=== PATIENT | male | born 1970 | race Caucasian/White ===

== ENCOUNTER 2017-05-22 02:36 | Emergency (ER) | payer SELFPAY ==
[~2017-05-22] VITALS: Ht 172.7 cm; Wt 65.0 kg
[2017-05-22 02:38] VITALS: BP 134/80; PULSE 67; RESP 16; TEMP 98.4; O2SAT 99
[2017-05-22] MEDS ORDERED: BACITRACIN/POLYMYXIN B 15 GM TUBE TOPICAL ONE (03:00)
--- NOTE | 2017-05-22 03:00 | PD ---
HPI Chief Complaint: Psychiatric Symptoms Time Seen by Provider: 02:45 Travel History International Travel<30 days: No Contact w/Intl Traveler<30days: No Traveled to known affect area: No History of Present Illness HPI This is a 46-year-old male who presents voluntarily requesting psychiatric evaluation. He reports over the past several months he has been binging on cocaine and alcohol. 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 He reports that most recently he was living in a hotel however last week the hotel ceiling collapsed on him. He was seen at [facility] for evaluation of his injuries. He had imaging studies performed at that time. He reports that he is now essentially homeless and over the past month he has been feeling increasingly depressed and having suicidal thoughts. Specifically he has had thoughts of shooting himself in the head. He called a friend who brought him here. He is complaining of some scabbed abrasions to the scalp and left knee from the ceiling injury. They are painful. He is also complaining of some nonspecific soft tissue swelling to the right forearm for the past 3 weeks. He reports that he had a fracture to the right forearm in 2013 and he doesn't know if this is related. He denies any IV drug abuse. He has no other complaints at this time. [facility] Social History Alcohol Use: Yes Tobacco Use: Yes Substance Use: Yes Allergies-Medications (Allergen,Severity, Reaction): Coded Allergies: No Known Allergies (Unverified , 05/22/17) Reported Meds & Prescriptions Reported Meds & Active Scripts Active No Active Prescriptions or Reported Medications Review of Systems Except as stated in HPI: all other systems reviewed are Neg Physical Exam Narrative GENERAL: Well-developed well-nourished male who appears depressed, anxious, tearful SKIN: Warm and dry. Well healing scabbed wounds noted to the scalp and left knee. Nonspecific soft tissue swelling to the medial right forearm, approximately 1.5 cm in diameter, subcutaneous. HEAD: Atraumatic. Normocephalic. EYES: Pupils equal and round. No scleral icterus. No injection or drainage. ENT: No nasal bleeding or discharge. Mucous membranes pink and moist. NECK: Trachea midline. No JVD. CARDIOVASCULAR: Regular rate and rhythm. No murmur appreciated. RESPIRATORY: No accessory muscle use. Clear to auscultation. Breath sounds equal bilaterally. GASTROINTESTINAL: Abdomen soft, non-tender, nondistended. Hepatic and splenic margins not palpable. MUSCULOSKELETAL: No obvious deformities. Skin as noted above. NEUROLOGICAL: Awake and alert. No obvious cranial nerve deficits. Motor grossly within normal limits. Normal speech. PSYCHIATRIC: Depressed, anxious, tearful Data Data Last Documented VS Vital Signs Date Time Temp Pulse Resp B/P Pulse Ox O2 Delivery O2 Flow Rate FiO2 05/22/17 02:38 98.4 67 16 134/80 99 Room Air Orders Complete Blood Count With Diff (05/22/17 02:56) Comprehensive Metabolic Panel (05/22/17 02:56) Psych Screen (05/22/17 02:56) Drug Screen, Random Urine (05/22/17 02:56) Alcohol (Ethanol) (05/22/17 02:56) Forearm (2vws) (05/22/17 ) Us Arm Soft Tissue (05/22/17 ) Bacitracin/Polymyxin Oint (Polysporin Oi (05/22/17 03:00) Labs Laboratory Tests Test 05/22/17 03:55 White Blood Count 8.6 TH/MM3 Red Blood Count 4.31 MIL/MM3 Hemoglobin 13.5 GM/DL Hematocrit 40.3 % Mean Corpuscular Volume 93.4 FL Mean Corpuscular Hemoglobin 31.3 PG Mean Corpuscular Hemoglobin 33.5 % Concent Red Cell Distribution Width 14.2 % Platelet Count 310 TH/MM3 Mean Platelet Volume 7.9 FL Neutrophils (%) (Auto) 61.4 % Lymphocytes (%) (Auto) 22.6 % Monocytes (%) (Auto) 12.5 % Eosinophils (%) (Auto) 2.3 % Basophils (%) (Auto) 1.2 % Neutrophils # (Auto) 5.3 TH/MM3 Lymphocytes # (Auto) 1.9 TH/MM3 Monocytes # (Auto) 1.1 TH/MM3 Eosinophils # (Auto) 0.2 TH/MM3 Basophils # (Auto) 0.1 TH/MM3 CBC Comment DIFF FINAL Differential Comment Sodium Level 138 MEQ/L Potassium Level 3.6 MEQ/L Chloride Level 106 MEQ/L Carbon Dioxide Level 23.3 MEQ/L Anion Gap 9 MEQ/L Blood Urea Nitrogen 13 MG/DL Creatinine 1.14 MG/DL Estimat Glomerular Filtration 69 ML/MIN Rate Random Glucose 89 MG/DL Calcium Level 7.9 MG/DL Aspartate Amino Transf 22 U/L (AST/SGOT) Albumin 3.2 GM/DL MDM Medical Decision Making Medical Screen Exam Complete: Yes Emergency Medical Condition: Yes Medical Record Reviewed: Yes Interpretation(s) CONCLUSION: 1. 2.8 x 2.3 x 0.8 cm well-circumscribed mass lesion in the subcutaneous tissues of the forearm with central calcification. Findings may represent an area of previous trauma with surrounding granulation tissue. 2. No abscess. Differential Diagnosis Substance induced mood disorder, major depressive disorder, alcoholism, acute psychosis, adjustment reaction Narrative Course 46-year-old male presents voluntarily requesting psychiatric evaluation for suicidal ideation. He reports that he has been binging on cocaine and alcohol for several months. For medical complaints he is complaining of some nonspecific soft tissue swelling to the medial right forearm for 3 weeks as well as pain associated with healing wounds on the left knee and scalp from a recent injury which he was evaluated for an outside hospital. Examination reveals healing wounds to the left knee and scalp with no evidence of infection. He has a 1.5 cm rubbery subcutaneous density to the medial right forearm. Soft tissue ultrasound an x-ray of the forearm will be performed. Polysporin will be administered to the patient's healing wounds. Mental health screening discussed with the patient. Psychiatric screen ordered. Ultrasound and x-ray imaging reveals no acute abnormality, no abscess. Diagnosis Primary Impression: Polysubstance abuse Additional Impression: Suicidal ideation Scripts No Active Prescriptions or Reported Meds Minh Gomez May 22, 2017 03:00
--- NOTE | 2017-05-22 03:18 | RADRPT ---
EXAM DATE/TIME: 05/22/2017 02:54 [facility] COMPARISON: No previous studies available for comparison. INDICATIONS : Right arm pain- no known injury MEDICAL HISTORY : None. SURGICAL HISTORY : None. ENCOUNTER: Initial ACUITY: 1 day PAIN SCORE: 5/10 LOCATION: Right Forearm FINDINGS: Two view examination of the right forearm demonstrates endosteal heterogeneity of the distal ulna pos sibly representing an old healed fracture injury. Otherwise, osseous structures are intact with no ac frances fracture. Benign-appearing calcification in the ulnar soft tissues of the distal forearm. CONCLUSION: 1. Heterogeneous appearance of the endosteum of the distal ulna may represent an old healed fracture injury versus Paget's disease. 2. No acute fracture. Xavier Murrell MD on May 22, 2017 at 3:14 Board Certified Radiologist. This report was verified electronically.
--- NOTE | 2017-05-22 03:56 | RADRPT ---
EXAM DATE/TIME: 05/22/2017 03:24 [facility] COMPARISON: FOREARM RIGHT (2VWS), May 22, 2017, 2:54. INDICATIONS : Palpable lump right forearm. MEDICAL HISTORY : Drug and alcohol abuse. SURGICAL HISTORY : None. ENCOUNTER: Initial ACUITY: 3 weeks PAIN SCORE: 5/10 LOCATION: Right forearm. AREA EVALUATED: Right mid posterior forearm. FINDINGS: MASSES: 2.8 x 2.3 x 0.8 cm well-circumscribed mass lesion in the subcutaneous tissues adjacent to the ulna wi th a central echogenic foci corresponding to calcification on plain film. There is regional hyperemia on Doppler interrogation. FLUID COLLECTIONS: None. OTHER: Negative. CONCLUSION: 1. 2.8 x 2.3 x 0.8 cm well-circumscribed mass lesion in the subcutaneous tissues of the forearm with central calcification. Findings may represent an area of previous trauma with surrounding granulation tissue. 2. No abscess. Xavier Murrell MD on May 22, 2017 at 3:52 Board Certified Radiologist. This report was verified electronically.
[2017-05-22 04:29] LABS: AUTOMATED NEUTROPHIL # 5.3 TH/MM3 (1.8-7.7); BASOPHIL # 0.1 TH/MM3 (0-0.2); BASOPHIL % 1.2 % (0.0-2.0); EOSINOPHIL # 0.2 TH/MM3 (0-0.4); EOSINOPHIL % 2.3 % (0.0-4.0); HEMATOCRIT 40.3 % (39.0-51.0); HEMO FLAGS DIFF FINAL; LYMPH % 22.6 % (9.0-44.0); LYMPHOCYTE # 1.9 TH/MM3 (1.0-4.8); MEAN CELL VOLUME 93.4 FL (80.0-100.0); MEAN CORPUSCULAR HEMOGLOBIN 31.3 PG (27.0-34.0); MEAN CORPUSCULAR HGB CONC 33.5 % (32.0-36.0); MONO % 12.5 % (0.0-8.0); NEUT % 61.4 % (16.0-70.0); PLATELET COUNT 310 TH/MM3 (150-450); RED BLOOD COUNT 4.31 MIL/MM3 (4.50-5.90); RED CELL DISTRIBUTION WIDTH 14.2 % (11.6-17.2); WHITE BLOOD COUNT 8.6 TH/MM3 (4.0-11.0)
[2017-05-22 04:46] LABS: ANION GAP 9 MEQ/L (5-15); AST (GOT) 22 U/L (15-37); BICARBONATE 23.3 MEQ/L (21.0-32.0); BLOOD UREA NITROGEN 13 MG/DL (7-18); CHLORIDE 106 MEQ/L (98-107); GLOMERULAR FILTRATION RATE 69 ML/MIN (>89); POTASSIUM 3.6 MEQ/L (3.5-5.1); SODIUM (NA) 138 MEQ/L (136-145)
[2017-05-22 04:51] LABS: ALKALINE PHOSPHATASE 74 U/L (45-117); ALT (GPT) 26 U/L (12-78); TOTAL BILIRUBIN ADULT 0.2 MG/DL (0.2-1.0)
[2017-05-22 04:57] LABS: ALCOHOL 71 MG/DL (0-5)
[2017-05-22 06:46] VITALS: BP 139/78; PULSE 58; RESP 18; TEMP 97.6; O2SAT 96
[2017-05-22 11:52] VITALS: BP 125/68; PULSE 60; RESP 18; TEMP 94.5; O2SAT 100
[2017-05-22 16:00] VITALS: BP 125/68; PULSE 60; RESP 18; O2SAT 100
--- NOTE | 2017-05-22 18:29 | PD.PSY.CON ---
Provisional Diagnosis Admission Date [place] I. Alcohol-induced mood disorder [place] II. deferred [place] III. denies [place] IV. employed, homeless [place] V. 50 History of Present Illness Service Psychiatry Consult Requested By ED Reason for Consult Requests psychiatric evaluation Primary Care Physician No Primary Care Physician HPI Patient is a 46 y/o man, recently homeless, employed, single with one adult son, past psychiatric history of depression, no prior psychiatric admissions, no prior suicide attempts who brought self into the ED after feeling depressed and having suicidal thoughts in the context of recent binge on alcohol and cocaine. Patient was seen in the ED, noted to be calm and cooperate and no longer noted to be intoxicated. Patient states that he has been recently binging on cocaine and alcohol after he had been evicted from his hotel/apartment recently. He states that while he was living in his hotel/ apartment the roof had collapsed on top of him which he is now seeking legal case for the incident. Shortly after he states having been evicted which was two days ago. He then stayed with his friend and began drinking alcohol and using cocaine who then brought him to the ED. He states not remember being brought to the ED and having made statements of having suicidal thoughts. He states that he does not have SI and is motivated to continue working which he is scheduled for tomorrow. He states that he has a son who is a profesional fighter whom he is proud of. He denies any depressive, manic or psychotic symptoms at this time. He plans on going to the [facility]. Past psychiatric history: previous diagnosis of depression, no prior hospitalizations, no prior suicide attempts or self-injurious behavior, previous medication trials: prozac and seroquel which he last took in 2013. Substance use history; Tobacco (+), ETOH use as stated above, cocaine use once per month, last use was yesterday. previous rehabiliation program. Past medical history: denies Allergies: NKDA Legal history: history of manslaughter charge which he served 20+ years in long-term. 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 BAL: 71 Utox: Cocaine (+) Review of Systems Except as stated in HPI: all other systems reviewed are Neg Past Family Social History Coded Allergies: No Known Allergies (Unverified , 05/22/17) No Active Prescriptions or Reported Meds Patient's Strengths (min. 2) verbal and communicative Physical Exam Vital Signs Vital Signs Date Time Temp Pulse Resp B/P (MAP) Pulse Ox O2 Delivery O2 Flow Rate FiO2 05/22/17 16:02 05/22/17 16:00 60 18 100 Room Air 05/22/17 11:52 94.5 Lab Results labs reviewed. Laboratory Tests Test 05/22/17 03:55 Red Blood Count 4.31 MIL/MM3 (4.50-5.90) Monocytes (%) (Auto) 12.5 % (0.0-8.0) Monocytes # (Auto) 1.1 TH/MM3 (0-0.9) Albumin 3.2 GM/DL (3.4-5.0) Calcium Level 7.9 MG/DL (8.5-10.1) Estimat Glomerular Filtration Rate 69 ML/MIN (>89) Urine Cocaine Screen POS (NEG) Ethyl Alcohol Level 71 MG/DL (0-5) Mental Status Examination Appearance Appears stated age, in hospital [facility], fair hygiene and grooming, calm and cooperative with interview, fair eye contact Speech: Unremarkable Orientation: x3 Memory: Recent (recent memory impaired due to recent intoxication) Thought Process: Logical, Organized Thought Content: Unremarkable Language fluent and spontaneous Fund of Knowledge average Hallucination Type: None Attention and Concentration: Good Suicidal Ideation: No Previous Suicide Attempts: No Homicidal Ideation: No Previous Homicide Attempts: No Insight: Fair Judgment: WNL Affect: Euthymic Mood: Appropriate Motor Activity: Normal gait Assessment & Plan Problem List: (1) Substance induced mood disorder ICD Codes: F19.94 - Other psychoactive substance use, unspecified with psychoactive substance-induced mood disorder (2) Polysubstance abuse ICD Codes: F19.10 - Other psychoactive substance abuse, uncomplicated Status: Acute Assessment & Plan Patient is a 46 y/o man who carries a diagnosis of depression, alcohol and cocaine use disorder who came to the ED endorsing feeling depressed and having SI in the context of substance intoxication. Patient no longer intoxicated, denies recollection of stating feeling depressed or having SI. Patient is future oriented and plans on returning to work. Patient no longer stating feeing depressed nor having SI at this time. Patient psychiatrically clear for discharge. Patient advised to abstain from alcohol and illicit substance use. Recommend referral to substance rehabiliation program as well to mental health clinic for conintuity of care. Patient agrees [facility] plan. Patient advised to call 911 or go to nearest ED in case of emergency. Luis M Hidalgo MD May 22, 2017 18:29
== END 2017-05-22 17:17 | disposition home or self-care (01) ==
LOC: NEPD 02:36 → NEPJ 17:17
DX: F19.94 Other psychoactive substance use, unspecified with psychoactive substance-induced mood disorder (principal); R45.851 Suicidal ideations; F10.10 Alcohol abuse, uncomplicated; F17.290 Nicotine dependence, other tobacco product, uncomplicated; F14.10 Cocaine abuse, uncomplicated
CPT/HCPCS: 73090; 76882; 80053; 80307; 85025; 99284